=== PATIENT | female | born 1975 | race Caucasian/White ===

== ENCOUNTER → 2023-08-31 | Day surgery (SDC) | payer MEDICAID ==
[~2023-08-31] MED LIST: Midazolam 1 MG/ML 2 ML SDV ONE; Propofol 200 MG/20 ML SDV ONE; fentaNYL 100 MCG/2 ML SDV ONE
[2023-08-31] MEDS: Lactated Ringers 1,000 ML IV SCH (11:00)
== END ==
LOC: JP.SDS 10:16
PROVIDERS: ATTEND Student in an Organized Health Care Education/Training Program
DX: Z12.11 Encounter for screening for malignant neoplasm of colon (principal); K63.5 Polyp of colon; F32.A Depression, unspecified; F41.9 Anxiety disorder, unspecified; Z79.899 Other long term (current) drug therapy
CPT/HCPCS: 88305; J2250; J2704; J3010; J7120